=== PATIENT | female | born 1960 | race African-American/Black ===

== ENCOUNTER → 2017-06-06 | Day surgery (SDC) | payer OTHER ==
[~2017-06-06] MED LIST: ACETAMINOPHEN/HYDROcodone 325 MG/5 MG TAB ONE; ATOR40TA PO; BUPIVACAINE/EPINEPHRINE 0.5% PF 30 ML VIAL ONE; DICL75 PO; FISHCAP PO; GLUCTAB PO; HYDR-3129 PO; LACTATED RINGER'S 1000 ML INJ 1,000 ML ONE; MIDAZOLAM HCL 2 MG/2 ML VIAL ONE; MORPHINE SULFATE 4 MG/ML INJ ONE; ONDANSETRON HCL 4 MG/2 ML VIAL IV PUSH ONE; PROPOFOL 200 MG/20 ML AMP IV ONE; TIZA4 PO; VITA-83 PO; VITA100020 PO; VITA200017 PO; VITA200T5 PO; VITATAB11 PO; ceFAZolin INJ 1,000 MG VIAL ONE
--- NOTE | 2017-06-06 15:59 | MP ---
cc: JOSIAH CORADO M.D. DATE OF SURGERY: 06/06/2017 PREOPERATIVE DIAGNOSIS Left knee medial and lateral meniscus tear. POSTOPERATIVE DIAGNOSIS Left knee medial and lateral meniscus tear. PROCEDURE Left knee arthroscopic partial medial and lateral meniscectomy. SURGEON Dr. Josiah Corado. ANESTHESIA General. ESTIMATED BLOOD LOSS Less than 10 ccs. TOURNIQUET TIME Zero minutes. COMPLICATIONS None. JUSTIFICATION The patient is a 57-year-old female who injured her left knee. She has had persistent symptoms of pain with failure of conservative treatment. Clinical exam as well as MRI confirmed the above-named findings. The patient was counseled as to the risks, benefits and alternatives of the above-named proposed surgical procedure. She did wish to proceed with surgery. PROCEDURE IN DETAIL A written consent was obtained. The patient was identified by name, taken to the operating room and placed supine on the operating table. General anesthesia was administered as well as 1 gram of IV Ancef. The left thigh was carefully placed in well-padded leg wiley. The left lower extremity was prepped and draped using isopropyl alcohol, Hibiclens solution and Chloraprep solution. After time-out was performed a standard medial and lateral parapatellar arthroscopic portal was established. The patellofemoral joint revealed slight grade 2 chondromalacia along the femoral trochlea. The medial compartment revealed a complex tear of posterior horn of the medial meniscus. An arthroscopic biter followed by arthroscopic shaver was introduced into the medial compartment to perform partial medial meniscectomy. The meniscal rim was probed and noted to be stable. There is some early grade 2 chondromalacia changes along the medial femoral condyle which was stable upon probing. The intercondylar notch revealed the anterior posterior cruciate ligaments to be intact. The lateral compartment revealed a large complex tear in mid bilateral meniscus extending into the anterior posterior horns. An arthroscopic shaver was introduced into the lateral compartment to perform partial lateral meniscectomy. The meniscal rim was probed and noted to be stable after meniscectomy. There was evidence of grade 2 and early grade 3 chondromalacia changes lateral femoral condyle. At the conclusion of the surgical procedure 30 ccs of 0.5% Marcaine with epinephrine was injected into the knee joint. The arthroscopic portals were closed with 3-0 Prolene suture. Sterile dressing was applied. The patient tolerated the procedure well. No intraoperative complications were noted. MD GM Mora/TLL /3:22 PM /3:48 PM
== END | disposition home or self-care (01) ==
LOC: ESDC 12:15
PROVIDERS: ATTEND Orthopaedic Surgery Sports Medicine
DX: S83.232A Complex tear of medial meniscus, current injury, left knee, initial encounter (principal); S83.272A Complex tear of lateral meniscus, current injury, left knee, initial encounter
CPT/HCPCS: 01400; 29880; J0690; J2250; J2270; J2405; J3010; J7120

== ENCOUNTER 2017-12-31 06:22 | Inpatient (IN) | payer OTHER, MEDICARE ==
[2017-12-29] MEDS: SODIUM CHLOR 0.9% 1000 ML INJ 1,000 ML IV SCH (12:30)
[~2017-12-31] VITALS: Ht 165.1 cm; Wt 98.4 kg
[2017-12-31] MEDS ORDERED: ASPI81CH6 CHEW (06:44)
[2017-12-31] MEDS ORDERED: DEXAMETHASONE SOD PHOS 20 MG/5 ML VIAL IV PUSH ONE (06:45)
[2017-12-31] MEDS ORDERED: TRAM50 PO (06:45)
[2017-12-31] MEDS ORDERED: ONDANSETRON HCL 4 MG/2 ML VIAL IVP PRN (07:00)
[2017-12-31] MEDS ORDERED: METOPROLOL TARTRATE 25 MG TAB PO PRN (07:00)
[2017-12-31] MEDS ORDERED: CHLORHEXIDINE GLUCONATE 4% SOLN 120 ML BTL TOPICAL SCH ×2 (07:00→08:45)
[2017-12-31] MEDS ORDERED: ZOLPIDEM TARTRATE 5 MG TAB PO PRN (07:00)
[2017-12-31] MEDS ORDERED: Post-op Orders (for Pharmacy) XX ONE (07:00)
[2017-12-31] MEDS ORDERED: NALOXONE HCL 0.4 MG/ML AMP IV PUSH PRN (07:00)
[2017-12-31] MEDS ORDERED: traMADol HCL 50 MG TAB PO PRN (07:00)
[2017-12-31] MEDS ORDERED: diphenhydrAMINE HCL 50 MG/ML VIAL IV PUSH PRN (07:00)
[2017-12-31] MEDS ORDERED: SODIUM CHLORID 0.9% 500 ML IV PRN (07:00)
[2017-12-31] MEDS ORDERED: HYDR-3583 PO (07:43)
[2017-12-31] MEDS ORDERED: TRAM50TA PO (07:43)
[2017-12-31] MEDS ORDERED: ATOR40TA16 PO (07:44)
[2017-12-31 07:53] VITALS: PULSE 65
[2017-12-31] MEDS: LACTATED RINGER'S 1000 ML IV PRN ×2 (07:55→08:00)
[2017-12-31] MEDS ORDERED: MIDAZOLAM HCL 2 MG/2 ML VIAL ONE (08:07)
[2017-12-31] MEDS ORDERED: BUPIVACAINE LIPOSOME PF 1.3% 20 ML VIAL ONE (08:07)
[2017-12-31] MEDS ORDERED: MIDAZOLAM HCL 2 MG/2 ML VIAL IV ONE (08:15)
[2017-12-31] MEDS ORDERED: BUPIVACAINE LIPOSOME PF 1.3% 20 ML VIAL NERV BLOCK ONE (08:30)
[2017-12-31] MEDS ORDERED: VANCOMYCIN 1 GM/200 ML PREMIX IV SCH ×2 (09:00)
[2017-12-31] MEDS ORDERED: ACETAMINOPHEN 1000 MG/100 ML 100 ML IV ONE (09:29)
[2017-12-31] MEDS ORDERED: SODIUM CHLORIDE 0.9% IV SCH (10:00)
[2017-12-31] MEDS ORDERED: TRANEXAMIC PERI-ARTICULAR 3,000 MG/NS 100 ML P-ARTICULR SCH ×2 (10:00)
[2017-12-31] MEDS ORDERED: ceFAZolin 2 GM PREMIX 50 ML IV SCH (10:00)
[2017-12-31] MEDS ORDERED: TRANEXAMIC ACID IV SCH (10:00)
[2017-12-31] MEDS ORDERED: ROPIVACAINE PERI-ARTICULAR INJECTION. P-ARTICULR SCH ×5 (10:00)
[2017-12-31] MEDS ORDERED: GENTAMICIN SULFATE 80 MG/2 ML VIAL IRRIGATION ONE (10:37)
[2017-12-31] MEDS ORDERED: ONDANSETRON HCL 4 MG/2 ML VIAL IV ONE (12:00)
[2017-12-31] MEDS ORDERED: NEOSTIGMINE 5 MG/5 ML SYRINGE IV PUSH ONE (12:00)
[2017-12-31] MEDS ORDERED: GLYCOPYRROLATE 1 MG/5 ML SYRINGE IV PUSH ONE (12:00)
[2017-12-31] MEDS ORDERED: LIDOCAINE HCL 1% PF 5 ML SYRINGE OTHER ONE (12:00)
[2017-12-31] MEDS ORDERED: ePHEDrine/NS 25 MG/5 ML SYRINGE IV ONE (12:00)
[2017-12-31] MEDS ORDERED: PROPOFOL 200 MG/20 ML AMP IV ONE (12:00)
[2017-12-31] MEDS ORDERED: METOPROLOL TARTRATE 5 MG/5 ML VIAL IV ONE (12:00)
[2017-12-31] MEDS ORDERED: ROCURONIUM INJ 100 MG/10 ML VIAL IV ONE (12:00)
[2017-12-31] MEDS ORDERED: ESMOLOL HCL 100 MG/10 ML VIAL IV ONE (12:00)
[2017-12-31] MEDS ORDERED: DO NOT ADM ANY ANTICOAGULANT DRUGS PRN (12:10)
--- NOTE | 2017-12-31 12:12 | MP ---
cc: Genaro Tavarez MD DATE OF OPERATION: 12/31/2017 DATE OF OPERATION: 12/31/2017. PREOPERATIVE DIAGNOSIS: Left knee osteoarthritis. POSTOPERATIVE DIAGNOSIS: Left knee osteoarthritis. PROCEDURE: Left total knee arthroplasty. SURGEON: Genaro Tavarez MD PERSONNEL MONITOR: VERA Henry. ANESTHESIA: General. ESTIMATED BLOOD LOSS: 100 mL TOURNIQUET TIME: 32 minutes at 300 mmHg. COMPLICATIONS: None. IMPLANTS USED: DePuy Attune size 7 posterior stabilized femoral component, size 7 rotating platform tibial baseplate, size 5 mm polyethylene tibial insert, size 38 patella. JUSTIFICATION: This patient is a 57-year-old female with history of severe osteoarthritis involving the left knee. She has severe disabling pain with standing, walking, ambulatory and weightbearing activities and severe pain at rest. She has failed greater than 3 months of nonoperative conservative treatment to include medication therapy, injections, ambulatory assistive aids, home exercise program, activity modification, weight loss attempts. The patient has also undergone prior arthroscopic surgery of her left knee, which did confirm the severe osteoarthritis. The patient was counseled as to the risks, benefits and alternatives to a total knee arthroplasty. The risks were discussed which included but were but not limited to anesthesia, bleeding, infection, damage to nerves and blood vessels, pain, stiffness, failure of components, blood clots, pulmonary embolism and even . The patient's pain was very severe. She favored the benefits over the risks. She did wish to proceed with surgery. PROCEDURE IN DETAIL: Written consent was obtained. The patient was identified by name, taken to the operating room and placed supine on the operating table. General anesthesia was administered, as well as 2 grams of IV Ancef and 1 gram of IV vancomycin. A well-padded tourniquet was placed on the left thigh, the left lower extremity prepped and draped using isopropyl alcohol, Hibiclens solution and ChloraPrep solution. After a timeout was performed, an Esmarch bandage was used to exsanguinate the left lower extremity, the tourniquet inflated to 250 mmHg. A longitudinal incision was made over the anterior aspect of the left knee. Medial parapatellar arthrotomy was performed. The patella was everted. A patellar resection guide was used to resect 9 mm of the patella. The size 38 mm guide was placed. Three drill holes were placed and a 38 mm trial fit well. Attention was turned to the femur. Intramedullary guide was placed. The distal femoral guide was set to remove 10 mm of distal femur, 5 degrees off the anatomic valgus axis line. An oscillating saw was used to perform the distal femoral cut. Attention was turned to the tibia where an extramedullary tibial guide was set to remove 5 mm off the lowest portion of the medial tibial plateau. Tibial guide was pinned in place and tibial cut was performed. A 5 mm spacer block showed full extension. Attention was turned back to the femur were the AP sizing block measured a size 7. The anterior reference 3-degree external rotation guide was used to pin the size [address] Anterior, posterior and chamfer cuts were performed. A size 7 PCL box guide was pinned in place and the PCL was boxed out with an oscillating saw. The medial and lateral meniscus remnants were removed as well as bone and soft tissue debris from the posterior portion of the knee. A size 7 tibial baseplate was pinned in place and tibia was drilled and punched. Trial components were removed. Final components were cemented in place. With the current components the leg could achieve full extension to 0 degrees and flexion to 140 with no evidence of tibial liftoff. Varus-valgus balance appeared appropriate and symmetric. The tourniquet was deflated. Bovie cautery was used for hemostasis. The surgical wound was thoroughly irrigated with sterile saline pulse lavage antibiotic impregnated solution. The arthrotomy incision was closed with #1 Vicryl suture, subcutaneous layer with 2-0 Vicryl suture. Skin was closed with Dermabond. Sterile dressing was applied. The patient tolerated the procedure well with no intraoperative complications noted. Elmer Funes, physician administrative assistant certified, was procedure throughout the entire procedure to include patient positioning and the procedure itself. The medical necessity of a physician administrative assistant was indicated in this case due to the complexity of the procedure. He assisted with appropriate manipulation of the leg and also retraction of muscles, tendon, bone and neurovascular structures. He assisted in preparation of bone and also implantation of the prosthetic replacement. MD GM Mora/CAREY , 11:47 AM , 12:11 PM
[2017-12-31] MEDS ORDERED: *morphine SULFATE 8 MG/ML PERIprocedure ONLY ONE ×2 (12:14→12:22)
[2017-12-31] MEDS ORDERED: MORPHINE SULFATE 4 MG/ML INJ ONE (12:18)
[2017-12-31] MEDS ORDERED: HYDROmorphone HCL PF 0.5 MG/0.5 ML SYRINGE ONE ×3 (12:30→12:43)
--- NOTE | 2017-12-31 13:45 | RADRPT ---
EXAM DATE: 12/31/2017 1:26 PM EDT AGE/SEX: 57 years / Female INDICATIONS: Post total left knee. CLINICAL DATA: This is the patient's initial encounter. Patient reports that signs and symptoms have been present for 1 day and indicates a pain score of Nonresponsive. MEDICAL/SURGICAL HISTORY: Non-responsive. Non-responsive. COMPARISON: No prior exams available for comparison. FINDINGS: AP and lateral views of the knee following arthroplasty reveals a prosthesis in anatomic alignment. F racture is not appreciated. CONCLUSION: Status post total knee arthroplasty. Sammy Jha MD FACR Electronically signed by: Sammy Jha MD 12/31/2017 1:43 PM EDT
--- NOTE | 2017-12-31 14:17 | PD.CONS ---
[facility] By Dr. Gen[facility] Tavarez Reason for Consult Opinion & recommendation on patient's hyperlipidemia Primary Care Physician Denilson Johnston MD Diagnoses: History of Present Illness 57-year-old white female with long-term history of left knee pain despite conservative treatment electively underwent a left total knee arthroplasty today with Dr. Tavarez. She currently has no complaints at this time. She denies a history of diabetes mellitus. She denies a history of constipation or any blood in the stools. She reports usually tolerates her statin she takes her current cholesterol at home without any side effects. Review of Systems Constitutional: DENIES: Fatigue, Fever, Chills, Change in appetite Endocrine: DENIES: Heat/cold intolerance Eyes: DENIES: Blurred vision, Eye pain, Vision loss Ears, nose, mouth, throat: DENIES: Hearing loss, Nasal discharge, Throat pain, Ear Pain, Sinus Pain Respiratory: DENIES: Cough, Shortness of breath Cardiovascular: DENIES: Chest pain, Palpitations, Dyspnea on Exertion, Lower Extremity Edema Gastrointestinal: DENIES: Abdominal pain, Black stools, Bloody stools, Constipation, Diarrhea, Nausea, Vomiting Genitourinary: DENIES: Dysuria Musculoskeletal: COMPLAINS OF: Joint pain (Left knee pain), DENIES: Muscle aches, Stiffness Integumentary: DENIES: Rash Hematologic/lymphatic: DENIES: Bruising, Lymphadenopathy Immunologic/allergic: DENIES: Eczema Neurologic: DENIES: Headache, Localized weakness, Paresthesias Psychiatric: DENIES: Anxiety, Depression, Suicidal Ideation Past Family Social History Allergies: Coded Allergies: cephalexin (Verified Allergy, Severe, ITCHY, 12/31/17) iodine (Unverified Allergy, Severe, SWELLING AND NAUSE, 12/31/17) metformin (Verified Allergy, Severe, Rash, 12/31/17) potassium iodide (Unverified Allergy, Severe, SWELLING AND NAUSE, 12/31/17) povidone-iodine (Unverified Allergy, Severe, SWELLING AND NAUSE, 12/31/17) sodium iodide (Unverified Allergy, Severe, SWELLING AND NAUSE, 12/31/17) sodium iodide (Unverified Allergy, Severe, SWELLING AND NAUSE, 12/31/17) propoxyphene (Unverified Allergy, Intermediate, HEART RACES, 03/06/17) penicillin G (Unverified Allergy, Mild, ITCHY ALL OVER BODY, 03/06/17) hydrocodone (Unverified Adverse Reaction, Severe, NNAUSEA AND VOMITING, ) naproxen (Unverified Adverse Reaction, Severe, Nausea/Vomiting, 03/06/17) erythromycin base (Unverified Adverse Reaction, Mild, VOMITING, 03/06/17) Past Medical History Hyperlipidemia Osteoarthritis Past Surgical History Bilateral tubal ligation Left fifth finger tendon release Left knee arthroscopic surgery Pituitary tumor removed Reported Medications Atorvastatin 40 mg p.o. nightly Hydrocodone/acetaminophen 10 one every 4 hours as needed for pain Ultram p.o. every 6 hours as needed for pain Family History Mother had heart disease Father had heart disease Social History Does not smoke cigarettes, drinks alcohol on special occasions only Physical Exam Vital Signs Vital Signs Date Time Temp Pulse Resp B/P (MAP) Pulse Ox O2 Delivery O2 Flow Rate FiO2 12/31/17 07:53 65 12/31/17 07:53 99 Nasal Cannula 2 12/31/17 07:45 98.4 74 20 137/84 (101) 99 Physical Exam GENERAL: This is a well-nourished, well-developed patient, in no apparent distress. SKIN: No rashes, ecchymoses or lesions. Cool and dry. HEAD: Atraumatic. Normocephalic. No temporal or scalp tenderness. EYES: Pupils equal round and reactive. Extraocular motions intact. No scleral icterus. No injection or drainage. ENT: Nose without bleeding, purulent drainage or septal hematoma. NECK: Trachea midline. No JVD or lymphadenopathy. Supple, nontender, no meningeal signs. CARDIOVASCULAR: Regular rate and rhythm without murmurs, gallops, or rubs. RESPIRATORY: Clear to auscultation. Breath sounds equal bilaterally. No wheezes , rales, or rhonchi. GASTROINTESTINAL: Abdomen soft, non-tender, nondistended. No hepato-splenomegaly , or palpable masses. No guarding. Normoactive bowel sounds MUSCULOSKELETAL: Extremities without clubbing, cyanosis, or edema. Left knee bandage clean dry intact NEUROLOGICAL: Awake and alert to person place time and situation. Cranial nerves II through XII intact. Motor and sensory grossly within normal limits. Normal speech. Imaging Last Impressions Knee X-Ray 12/31/17 6771 Signed Impressions: CONCLUSION: Status post total knee arthroplasty. Sammy Jha MD FACR Assessment and Plan Assessment and Plan 1. Status post operative left total knee arthroplasty continue pain control, physical therapy, postoperative care per orthopedic surgery Dr. Tavarez. 2. History of hyperlipidemia, chronic - resume home atorvastatin 3. DVT prophylaxis orthopedic surgery Lovenox per orthopedic surgery Thank you for this consultation Rhona Amaya MD Dec 31, 2017 14:17
[2017-12-31 16:00] VITALS: BP 125/73; PULSE 68; RESP 18; TEMP 97.9; O2SAT 98
[2017-12-31] MEDS: SODIUM CHLOR 0.9% 1000 ML INJ 1,000 ML IV SCH (17:00)
[2017-12-31 20:00] VITALS: BP 113/62; PULSE 60; RESP 18; TEMP 97.4; O2SAT 100
[2017-12-31] MEDS: VANCOMYCIN INJ 1,000 MG in SODIUM CHLOR 0.9% 250 ML INJ 250 ML IV SCH (21:20)
[2017-12-31] MEDS: ATORVASTATIN 40 MG TAB PO SCH (21:21)
[2017-12-31] MEDS: traMADol HCL 50 MG TAB PO PRN (21:23)
[2018-01-01 00:01] VITALS: BP 111/60; PULSE 60; RESP 17; TEMP 98.2; O2SAT 99
[2018-01-01] MEDS: SODIUM CHLOR 0.9% 1000 ML INJ 1,000 ML IV SCH ×3 (02:38→23:00)
[2018-01-01] MEDS: MORPHINE SULFATE 4 MG/ML INJ IV PUSH PRN ×3 (02:39→23:44)
[2018-01-01] MEDS: traMADol HCL 50 MG TAB PO PRN (04:38)
[2018-01-01 05:00] LABS: HEMATOCRIT 31.8 % (35.0-46.0); HEMOGLOBIN 10.5 GM/DL (11.6-15.3); MEAN CELL VOLUME 83.3 FL (80.0-100.0); MEAN CORPUSCULAR HEMOGLOBIN 27.4 PG (27.0-34.0); MEAN CORPUSCULAR HGB CONC 32.9 % (32.0-36.0); PLATELET COUNT 272 TH/MM3 (150-450); RED BLOOD COUNT 3.82 MIL/MM3 (4.00-5.30); RED CELL DISTRIBUTION WIDTH 14.1 % (11.6-17.2); WHITE BLOOD COUNT 10.2 TH/MM3 (4.0-11.0)
[2018-01-01 05:18] LABS: BICARBONATE 23.4 MEQ/L (21.0-32.0); CALCIUM 8.6 MG/DL (8.5-10.1); CREATININE 0.85 MG/DL (0.50-1.00)
[2018-01-01] MEDS: VANCOMYCIN INJ 1,000 MG in SODIUM CHLOR 0.9% 250 ML INJ 250 ML IV SCH (07:35)
--- NOTE | 2018-01-01 07:53 | PD.ORT.PN ---
Subjective Post Op Day #: 1 Subjective Remarks pain tolerable. Objective Vitals Vital Signs Date Time Temp Pulse Resp B/P (MAP) Pulse Ox O2 Delivery O2 Flow Rate FiO2 01/01/18 00:01 98.2 60 17 111/60 (77) 99 12/31/17 20:00 97.4 60 18 113/62 (79) 100 12/31/17 16:00 97.9 68 18 125/73 (90) 98 12/31/17 13:25 65 16 116/68 (84) 100 Nasal Cannula 2 12/31/17 13:15 50 16 122/62 (82) 100 Nasal Cannula 2 12/31/17 13:00 50 16 136/73 (94) 99 Nasal Cannula 2 12/31/17 12:45 58 16 137/69 (91) 100 Nasal Cannula 2 12/31/17 12:30 69 16 146/73 (97) 99 Nasal Cannula 2 12/31/17 12:15 75 16 158/81 (106) 100 Nasal Cannula 2 12/31/17 12:06 97.7 110 16 117/79 (92) 100 Nasal Cannula 2 12/31/17 07:53 65 12/31/17 07:53 99 Nasal Cannula 2 I/O 12/31/17 12/31/17 12/31/17 01/01/18 01/01/18 01/01/18 07:00 15:00 23:00 07:00 15:00 23:00 Intake Total 1200 ml 480 ml 480 ml Output Total 100 ml 750 ml Balance 1100 ml -270 ml 480 ml Intake Oral 480 ml 480 ml Other 1200 ml Output Urine Total 750 ml Estimated Blood Loss 100 ml # Voids 1 3 Result Diagram: 01/01/187 01/01/187 Objective Remarks in bed, nad dressing c/d/i neg homans nvi Assessment & Plan Ortho Post Op Day #: 1 Problem List: Assessment and Plan s/p L TKA wbat ok to maintain dressing unless saturated lovenox, d/c on asa 81 d/c planning home with [facility] and pt f/up dr. wise 2 weeks Genaro Funes Jan 01, 2018 07:53
--- NOTE | 2018-01-01 07:58 | HHI.DCPOC ---
Discharge Care Plan Diagnosis: (1) Primary localized osteoarthrosis, lower leg Your Health Problems Are: Difficulty with ADL Goals to Promote Your Health * To prevent worsening of your condition and complications * To maintain your health at the optimal level Directions to Meet Your Goals Take your medications as prescribed Follow your dietary instruction Follow activity as directed Keep your appointments as scheduled Take your immunizations and boosters as scheduled If your symptoms worsen call your PCP, if no PCP go to Urgent Care Center or Emergency Room Smoking is Dangerous to Your Health. Avoid second hand smoke Call the 24-hour hour crisis hotline for domestic abuse at Genaro Funes Jan 01, 2018 07:58
--- NOTE | 2018-01-01 07:59 | HHI.FF ---
Face to Face Verification Diagnosis: (1) Primary localized osteoarthrosis, lower leg Physical Therapy Gait training, Safety evaluation, Transfer training, bed to chair Knee: Total knee, Protocol: Left, Full weight bearing Left LE Weight Bearing: WB as tolerated Nursing RN: 3 days/week x 2 weeks Nursing: Dressing changes I have seen patient Charlene Quiles on 01/01/18. My clinical findings support the need for the requested home health care services because: Limited ability to care for self High risk of falls I certify that my clinical findings support that this patient is homebound because: Post-op weakness Unsteady gait/balance Genaro Funes Jan 01, 2018 07:59
[2018-01-01 08:00] VITALS: BP 140/66; PULSE 54; RESP 18; TEMP 98.1; O2SAT 98
[2018-01-01] MEDS ORDERED: COMMODE 3-IN-11 MIS (08:00)
[2018-01-01] MEDS: oxyCODONE/ACETAMINOPHEN 5 MG/325 MG TAB PO PRN ×4 (09:16→22:15)
[2018-01-01 12:00] VITALS: BP 134/66; PULSE 57; RESP 19; TEMP 97.7; O2SAT 100
[2018-01-01] MEDS: ENOXAPARIN SODIUM 40 MG/0.4 ML SYRINGE SQ SCH (12:29)
--- NOTE | 2018-01-01 14:47 | HHI.PR ---
Subjective Remarks Follow-up visit status post left total knee arthroplasty, HLD. Patient seen and examined today. Reports she is doing well. She just got out of the class and she says that it is very helpful for her. States she wanted a commode for the living room so she does not have a hard time going in and out of the bathroom. Otherwise, denies pain and discomfort. Denies SOB/ dyspnea. Denies chest pain, palpitations, headaches, dizziness. Denies fevers, chills, n/v/d. Denies dysuria. Objective Vitals Vital Signs Date Time Temp Pulse Resp B/P (MAP) Pulse Ox O2 Delivery O2 Flow Rate FiO2 01/01/18 12:00 97.7 57 19 134/66 (88) 100 01/01/18 08:00 98.1 54 18 140/66 (90) 98 01/01/18 00:01 98.2 60 17 111/60 (77) 99 12/31/17 20:00 97.4 60 18 113/62 (79) 100 12/31/17 16:00 97.9 68 18 125/73 (90) 98 I/O 12/31/17 12/31/17 12/31/17 01/01/18 01/01/18 01/01/18 06:59 14:59 22:59 06:59 14:59 22:59 Intake Total 1200 ml 480 ml 480 ml 450 ml Output Total 100 ml 750 ml Balance 1100 ml -270 ml 480 ml 450 ml Intake Oral 480 ml 480 ml IV Total 450 ml Other 1200 ml Output Urine Total 750 ml Estimated Blood Loss 100 ml # Voids 1 3 Result Diagram: 01/01/1842601/01/18426 Imaging Last Impressions Knee X-Ray 12/31/17 0646 Signed Impressions: CONCLUSION: Status post total knee arthroplasty. Sammy Jha MD FACR Objective Remarks GENERAL: This is a well-nourished, well-developed patient, in no apparent distress. SKIN: Warm and dry HEENT: Normocephalic. Pupils equal round and reactive. Nose without bleeding. Airway patent. NECK: Trachea midline. No JVD. Supple. CARDIOVASCULAR: Regular rate and rhythm without murmurs, gallops, or rubs. RESPIRATORY: Clear to auscultation. Breath sounds equal bilaterally. No wheezes , rales, or rhonchi. GASTROINTESTINAL: Abdomen soft, non-tender, nondistended. Bowel Sounds normoactive x4. MUSCULOSKELETAL: Extremities without clubbing, cyanosis. Left lower extremity trace edema, brace in place. NEUROLOGICAL: Awake and alert. Oriented to time, place, person. No focal neuro deficit. Moves all extremities. Normal speech. Procedures Status post left total knee arthroplasty A/P Assessment and Plan 57-year-old white female with long-term history of left knee pain despite conservative treatment electively underwent a left total knee arthroplasty today with Dr. Tavarez. Status post left total knee arthroplasty by Dr. Tavarez -Management by orthopedic surgeon -Pain management, bowel regimen -Physical therapy eval and treat. -Request for 3 in 1 commode placed in a DME History of HLD -Continue atorvastatin DVT prop Lovenox Discharge Planning Plan to DC home tomorrow as per orthopedic surgeon. Bruno Jansen Jan 01, 2018 14:47
[2018-01-01 16:00] VITALS: BP 127/60; PULSE 63; RESP 18; TEMP 97.4; O2SAT 97
[2018-01-01 19:50] VITALS: BP 136/79; PULSE 62; RESP 17; TEMP 97.9; O2SAT 98
[2018-01-01] MEDS: ATORVASTATIN 40 MG TAB PO SCH (20:13)
[2018-01-01] MEDS: MULTIVITAMINS/MINERALS THERAPEUTIC TAB PO SCH (20:13)
[2018-01-01] MEDS: DOCUSATE SODIUM 100 MG CAP PO SCH (20:13)
[2018-01-02] VITALS: BP 160/71; PULSE 60; RESP 17; TEMP 98.2; O2SAT 98
[2018-01-02] MEDS: oxyCODONE/ACETAMINOPHEN 5 MG/325 MG TAB PO PRN ×3 (02:59→11:59)
[2018-01-02 05:50] LABS: HEMATOCRIT 30.1 % (35.0-46.0); HEMOGLOBIN 9.8 GM/DL (11.6-15.3); MEAN CELL VOLUME 84.5 FL (80.0-100.0); MEAN CORPUSCULAR HEMOGLOBIN 27.6 PG (27.0-34.0); MEAN CORPUSCULAR HGB CONC 32.7 % (32.0-36.0); MEAN PLATELET VOLUME 8.6 FL (7.0-11.0); PLATELET COUNT 221 TH/MM3 (150-450); RED BLOOD COUNT 3.56 MIL/MM3 (4.00-5.30); RED CELL DISTRIBUTION WIDTH 14.3 % (11.6-17.2); WHITE BLOOD COUNT 8.3 TH/MM3 (4.0-11.0)
[2018-01-02 06:06] LABS: BICARBONATE 27.2 MEQ/L (21.0-32.0); CALCIUM 8.1 MG/DL (8.5-10.1); CREATININE 0.65 MG/DL (0.50-1.00)
[2018-01-02] MEDS ORDERED: SENNOSIDES 8.6 MG TAB PO PRN (07:45)
[2018-01-02] MEDS ORDERED: MAGNESIUM HYDROXIDE SUSP 30 ML CUP PO ONE (07:45)
[2018-01-02] MEDS ORDERED: MAGNESIUM HYDROXIDE SUSP 30 ML CUP PO PRN (07:45)
[2018-01-02] MEDS ORDERED: SENNOSIDES 8.6 MG TAB PO ONE (07:45)
[2018-01-02] MEDS: MULTIVITAMINS/MINERALS THERAPEUTIC TAB PO SCH (07:48)
[2018-01-02] MEDS: DOCUSATE SODIUM 100 MG CAP PO SCH (07:49)
[2018-01-02 08:00] VITALS: BP 168/95; PULSE 70; RESP 19; TEMP 97.2; O2SAT 99
[2018-01-02] MEDS ORDERED: LACTULOSE SYRUP 20 GM/30 ML CUP PO SCH (09:00)
[2018-01-02] MEDS: ENOXAPARIN SODIUM 40 MG/0.4 ML SYRINGE SQ SCH (10:46)
--- NOTE | 2018-01-02 14:28 | PD.ORT.PN ---
Subjective Post Op Day #: 2 Subjective Remarks pain tolerable. doing well. Objective Vitals Vital Signs Date Time Temp Pulse Resp B/P (MAP) Pulse Ox O2 Delivery O2 Flow Rate FiO2 01/02/18 08:00 97.2 70 19 168/95 (119) 99 01/02/18 00:00 98.2 60 17 160/71 (100) 98 01/01/18 19:50 97.9 62 17 136/79 (98) 98 01/01/18 16:00 97.4 63 18 127/60 (82) 97 I/O 01/01/18 01/01/18 01/01/18 01/02/18 01/02/18 01/02/18 07:00 15:00 23:00 07:00 15:00 23:00 Intake Total 480 ml 450 ml 1100 ml 720 ml Balance 480 ml 450 ml 1100 ml 720 ml Intake Oral 480 ml 1100 ml 720 ml IV Total 450 ml # Voids 3 4 4 # Bowel Movements 0 Result Diagram: 01/02/18 0408 01/02/18 0408 Objective Remarks in bed, nad dressing c/d/i neg homans nvi Assessment & Plan Ortho Post Op Day #: 2 Problem List: Assessment and Plan s/p L TKA wbat ok to maintain dressing unless saturated lovenox, d/c on asa 81 PT d/c planning home with [facility] and pt - waiting on auth for [facility] f/up dr. wise 2 weeks Genaro Funes Jan 02, 2018 14:28
== END 2018-01-02 14:29 | disposition home health service (06) | DRG 470 ==
LOC: HSDI 06:22 → EDSTATUS 10:00 → N06B 13:31
PROVIDERS: ADMIT Orthopaedic Surgery Sports Medicine; ATTEND Orthopaedic Surgery Sports Medicine
PROC: 0SRD0J9 Replacement of Left Knee Joint with Synthetic Substitute, Cemented, Open Approach (ICD-10-PCS; principal; 2017-12-31 09:56)
DX: M17.12 Unilateral primary osteoarthritis, left knee (principal); E78.5 Hyperlipidemia, unspecified; E66.9 Obesity, unspecified; Z68.36 Body mass index [BMI] 36.0-36.9, adult; F17.210 Nicotine dependence, cigarettes, uncomplicated; Z88.1 Allergy status to other antibiotic agents; Z88.8 Allergy status to other drugs, medicaments and biological substances; Z88.0 Allergy status to penicillin; Z91.013 Allergy to seafood
CPT/HCPCS: 73560; 80048; 85027; 86850; 86900; 86901; 94150; C1776; C9290; J0131; J0690; J0735; J1100; J1170; J1580; J1650; J1885; J2250; J2270; J2405; J2710; J2795; J3010; J3370; J7030; J7050; J7120